=== PATIENT | female | born 1990 | race Caucasian/White ===

== ENCOUNTER → 2018-09-25 09:08 | Outpatient (CLI) | payer OTHER, SELFPAY ==
[2018-09-25 13:08] LABS: Chlamydia Trachomatis by PCR Negative (Negative); Neisserai gonorrhoeae by PCR Negative (Negative); Probe Check PASS; Sample Adequacy Control PASS; Specimen Processing Control PASS
[2018-10-02 13:23] LABS: HPV Reflexed? NOT INDICATED
== END ==
PROVIDERS: Visit Provider Obstetrics & Gynecology
DX: Z12.4 Encounter for screening for malignant neoplasm of cervix (principal); Z11.3 Encounter for screening for infections with a predominantly sexual mode of transmission
CPT/HCPCS: 87491; 87591; 87624; 88175; G0145

== ENCOUNTER 2019-02-26 10:20 | Inpatient (IN) | payer SELFPAY ==
[2019-02-26] VITALS (17 sets, daily range): BP systolic 97–132; BP diastolic 49–78; PULSE 75–104; RESP 14–20; TEMP 36.3–37.1; O2SAT 97–100; BMI 31.8
[2019-02-26] MEDS: Lactated Ringers 1,000 ML 999 ML IV (10:55)
[2019-02-26 11:16] LABS: Absolute Lymphocyte Count 2.36 X10^3/uL (0.83-4.51); Absolute Neutrophil Count 6.3 X10^3/uL (2.0-7.7); Basophil# 0.03 X10^3/uL; Basophil% 0.3 % (0-1); Eosinophil# 0.07 X10^3/uL; Eosinophils% 0.7 % (0-5); Hematocrit 35.2 % (37-47); Lymphocyte # 2.36 X10^3/ul (4.0); Lymphocyte % 24.8 % (19-41); Mean Corp Hgb Conc 34.1 g/dL (32-36); Mean Corpuscular Hgb 31.2 pg (27.0-32.0); Mean Corpuscular Volume 91.4 fL (81-99); Mean Platelet Vol. 10.9 fl (6.2-12.0); Monocyte# 0.68 X10^3/uL; Monocyte% 7.2 % (0-10); NRBC Flagged by Analyzer 0 % (0-5); Neutrophil # 6.25 X10^3/uL (2.7-7.7); Neutrophil % 65.8 % (47-70); Platelet Count 150 K/mm3 (150-450); RBC Distribution Width CV 13.1 % (11.6-14.6); RBC Distribution Width SD 43.2 fl (35.1-43.9); Red Blood Count 3.85 M/mm3 (4.2-5.4); White Blood Count 9.5 K/mm3 (4.4-11.0)
[2019-02-26] MEDS: Sodium Citrate/Citric Acid 30 ML UDC PO (12:00)
[2019-02-26] MEDS: Cefazolin 2 GM in 0.9% Normal Saline 100 ML IV (12:09)
--- NOTE | 2019-02-26 12:20 | OP.PCM_ITS ---
Delivery Classification: Scheduled Final LAURO: 03/05/19 Final LAURO Source: US <20 weeks Gestational age: 39 Weeks and 0 Days Indications for : Repeat Elective Description of Procedure: Surgeon: Tanner Hansen MD, FACOG Associate Agent Insurance Sales: NISHI Crow Anesthesia: Breana Forde CRNA Anesthesia: Spinal with Duramorph Pre-op Diagnosis: Prior Section Post-Op Diagnosis: Prior Section Procedure: Repeat Low Transverse Cervical Caesarean Section Findings: Viable female with Apgars of 9/9 in an occiput anterior presentation with clear amniotic fluid and normal three-vessel placenta. Indication: This is a 28-year-old who presents for her second at 39 weeks gestation. care has otherwise been uneventful. The patient has been counseled regarding the risk and indications of this procedure including the possibility of bleeding infection and injury to surrounding structures such as bowel bladder. All questions were answered. Procedure: Patient was taken to the operating room where after spinal anesthesia was placed, the patient was prepped and draped in usual sterile fashion and a Hennessy catheter was placed. The abdomen was entered through the patient's prior Pfannenstiel incision and peritoneum was entered bluntly. After developing a bladder flap on the lower uterine segment a low transverse incision was made on the uterus and head was easily delivered onto the operative field the nose mouth and oropharynx were bulb suctioned. Subsequently a viable female was born with Apgars of 9/9. The infant was noted to cry move all extremities vigorously on the operative field. The umbilical cord was doubly clamped and ligated and handed to the nursery personnel who were present for the delivery. Placenta was delivered and noted to be 3 vessels and normal. Uterus was exteriorized and remaining placental tissue was removed. The uterus was then closed in 2 layers first with running locked 0 Vicryl suture followed by a second imbricating layer with 0 Vicryl suture. 0 Vicryl suture was then used in a horizontal mattress interrupted fashion to affect final hemostasis of the uterine incision line. Normal fallopian tubes and ovaries were visualized and the uterus was returned to the pelvis. Hemostasis was noted and rectus abdominis muscles were reapproximated in the midline with interrupted Number 0 Vicryl suture in a horizontal mattress fashion. Fascia was closed with running Number 1 PDS Strata fix suture. Subcutaneous tissue was irrigated with copious amounts of saline solution and then closed with running 3-0 Vicryl suture. Skin was closed with 4-0 monocryl suture in a running subcuticular fashion. Steri strips, telfa, and tape were placed across the incision. The patient tolerated the procedure well and was taken to the recovery room in satisfactory condition. Sponge, needle, and instrument counts were all reportedly correct. EBL was less than 500 cc. Ancef 2 gms IV was given prior to the procedure. Spicemen to Pathology: None Complications: None Amniotic Fluid Description: Clear Placenta Disposition: [facility] Specimen(s) sent to pathology: None Fluids Replaced: Crystalloid Cord Entanglement: None Cord Vessel Description: 3 Vessels Esitmated Blood Loss (ml): 500 cc Gender: Female (1 minute): 9 (5 minute): 9 Pre-op Antibiotic Given: Ancef 2 grams IV x1 Pt instructed on risks of surgery: Bleeding, Infection, Injury to surrounding structure(s) including bowel and bladder Complications: None - Admit VTE Documentation VTE Present on Admission: Yes VTE Mechan Device Prophylaxis: SCD's VTE Pharm Prophylaxis ordered?: No Reason prophylaxis not ordered:: Treatment Not Indicated
[2019-02-26] MEDS: Oxytocin 30 units/NS 500 ml 30 UNITS/500 ML IV.SOLN 167 UNITS IV (12:31)
--- NOTE | 2019-02-26 13:12 | DCINST_ITS ---
Discharge Diet: No Restrictions Discharge Activity: May not drive while taking narcotic pain medications., May Shower, May Take a Tub Bath May resume sexual activity in: 4-6 weeks Lifting Restrictions: 20 pounds Additional Activity Instructions:: Nothing in the vagina for 4-6 weeks. You may return to work/school in 6 weeks. Call your doctor if your incision/area has: Continuous Slow Oozing, Sudden Increased Bleeding, Increased Pain/ Swelling, Increased Redness, Foul Smelling Discharge Call your doctor if you observe: Fever of 101 or Higher, Inability to urinate, Inability to have a bowel movement, Using more than one pad per hour Additional Instructions: If you experience any of the following, contact your healthcare provider. * Bleeding that soaks a pad every hour for 2 hours * Unrelieved incision or abdominal pain * Swelling, redness, discharge or bleeding from your incision or episiotomy site * Your incision begins to separate * Problems urinating (including inability to urinate or burning while urinating). * Visual changes * Severe headache * Flu-like symptoms * Pain or redness in one of both of your breasts * Pain, warmth, tenderness or swelling in your legs, especially the calf area * Frequent nausea and vomiting * Symptoms of depression or anxiety If you experience any of the following, call 911 or go to the nearest Emergency Room. * Chest pain * Problems breathing * Seizure activity * Partial or complete paralysis of a body part, slurred speech, weakness or drooping of the face, or a sudden inability to walk or hold your balance Allergies/Adverse Reactions: Allergies No Known Allergies Allergy (Verified 02/26/19 10:45) Medications to take at Discharge Docusate Sodium [Colace] 100 mg PO BID PRN PRN #60 cap 02/26/19 Oxycodone [Oxyir] 5 mg PO Q6H PRN PRN 7 Days #20 tab 02/26/19 Vit No.130/Iron/Folic [ Tablet] 1 ea PO DAILY 02/26/19 The following prescriptions were given: Docusate Sodium [Colace] 100 mg PO BID PRN PRN #60 cap PRN Reason: Constipation Prescription Printed Oxycodone [Oxyir] 5 mg PO Q6H PRN PRN 7 Days #20 tab PRN Reason: Severe Pain () Prescription Printed Follow-Up: Call to make an appointment with your doctor for an incision check in 1-2 weeks. You will also need a 6 week post- follow up appointment. Test results from this visit will be discussed in further detail at your follow- up appointment, if applicable. Please Follow Up With: Tanner Hansen MD - [phone] When: Call to make an appointment for an incision check in 2 weeks.
[2019-02-26] MEDS: Lactated Ringers 1,000 ML 100 ML IV (14:09)
[2019-02-26] MEDS: Ondansetron ODT 4 MG Tablet PO (16:36)
[2019-02-26] MEDS: Cefazolin 1 GM/50 ML BAG IV (21:09)
[2019-02-27] VITALS (11 sets, daily range): BP systolic 98–109; BP diastolic 50–60; PULSE 69–79; RESP 14–18; TEMP 36.3–36.9; O2SAT 97–100
[2019-02-27] MEDS: Lactated Ringers 1,000 ML 100 ML IV (00:03)
[2019-02-27] MEDS: Ketorolac 30 MG/ML Syringe IV ×4 (00:03→18:07)
[2019-02-27] MEDS: Cefazolin 1 GM/50 ML BAG IV (04:29)
[2019-02-27 06:30] LABS: Hematocrit 32.6 % (37-47); Hemoglobin 10.9 g/dL (12.0-15.0); Mean Corp Hgb Conc 33.4 g/dL (32-36); Mean Corpuscular Hgb 31.4 pg (27.0-32.0); Mean Corpuscular Volume 93.9 fL (81-99); Mean Platelet Vol. 10.8 fl (6.2-12.0); Platelet Count 127 K/mm3 (150-450); RBC Distribution Width CV 13.4 % (11.6-14.6); RBC Distribution Width SD 45.8 fl (35.1-43.9); Red Blood Count 3.47 M/mm3 (4.2-5.4); White Blood Count 11.6 K/mm3 (4.4-11.0)
[2019-02-27] MEDS: Acetaminophen 500 MG Tablet 1000 MG PO (07:55)
[2019-02-27] MEDS: Senna/Docusate Sodium 1 Tablet PO (07:55)
[2019-02-27] MEDS: 0.9% Saline Lock 10 ML Syringe IV ×3 (07:57→18:08)
--- NOTE | 2019-02-27 08:06 | PCM.PN.OB ---
Subjective: Patient without complaints. Tolerating diet well. Denies flatus. Hennessy just discontinued. - Physical Exam Vital Signs Temp Pulse Resp BP Pulse Ox 98.4 F 69 18 109/60 97 02/27/19 07:31 02/27/19 07:31 02/27/19 07:31 02/27/19 07:31 02/27/19 07:31 Oxygen Delivery Method Room Air Weight: 197 lb Body Mass Index (BMI) 31.8 Intake and Output for Last 24 Hours 02/25/19 02/26/19 02/27/19 23:59 23:59 23:59 Intake Total 3655 / 3655 Output Total 2049 / 2049 500 / 500 Balance 1605 / 1605 -500 / -500 Laboratory Tests Past 24 Hrs 02/26/19 02/26/19 02/27/19 10:55 10:55 06:25 WBC 9.5 11.6 H RBC 3.85 L 3.47 L Hgb 12.0 10.9 L Hct 35.2 L 32.6 L MCV 91.4 93.9 MCH 31.2 31.4 MCHC 34.1 33.4 RDW Std Deviation 43.2 45.8 H RDW Coeff of Toi 13.1 13.4 Plt Count 150 127 L MPV 10.9 10.8 Immature Gran % (Auto) 1.200 H Neut % (Auto) 65.8 Lymph % (Auto) 24.8 [place] % (Auto) 7.2 Eos % (Auto) 0.7 Baso % (Auto) 0.3 Absolute Neuts (auto) 6.3 Absolute Lymphs (auto) 2.36 Absolute Nucleated RBC 0.00 Nucleated RBC % 0 Blood Type A POSITIVE Antibody Screen NEGATIVE Wound is clean, dry, intact. Good urine output. Hemoglobin okay. Medical Necessity - Tobacco Use Smoking Status: Never smoker Assessment/Plan Doing well postoperative day #1 status post repeat . Continuing present care.
--- NOTE | 2019-02-27 18:27 | NURSING ---
Reviewed and agree with all charting by CHRISTEN Monahan
[2019-02-28] MEDS: Ketorolac 30 MG/ML Syringe IV ×2 (00:11→06:01)
[2019-02-28] MEDS: 0.9% Saline Lock 10 ML Syringe IV ×2 (00:12→06:02)
[2019-02-28 02:50] VITALS: BP 114/61; PULSE 73; RESP 16; TEMP 36.6; O2SAT 97
[2019-02-28 08:26] VITALS: BP 122/63; PULSE 85; RESP 16; TEMP 36.2
--- NOTE | 2019-02-28 09:35 | PCM.PN.OB ---
Subjective: Patient without complaints. Tolerating diet well. Breast-feeding going well. Ready to go home. - Physical Exam Vital Signs Temp Pulse Resp BP Pulse Ox 97.2 F L 85 16 122/63 H 97 02/28/19 08:26 02/28/19 08:26 02/28/19 08:26 02/28/19 08:02/28/19 02:50 Oxygen Delivery Method Room Air Weight: 197 lb Body Mass Index (BMI) 31.8 Intake and Output for Last 24 Hours 02/26/19 02/27/19 02/28/19 23:59 23:59 23:59 Intake Total 3655 / 3655 Output Total 2049 / 2049 1400 / 1400 Balance 1605 / 1605 -1400 / -1400 Medical Necessity - Tobacco Use Smoking Status: Never smoker Assessment/Plan Doing well post operative day #2 status post repeat . Will discharge to home with routine instructions.
--- NOTE | 2019-03-04 16:39 | NURSING ---
mother doing well and baby eating with shield but doing well . Lots of voids and stools. Mother thought Elena was super and the nurses that were helping from the other floors
== END 2019-02-28 10:40 | disposition home or self-care (01) | DRG 833 ==
PROVIDERS: Admitting Provider Obstetrics & Gynecology; Referring Provider Obstetrics & Gynecology; Visit Provider Obstetrics & Gynecology
PROC: (CPT 59514; principal; 2019-02-26 11:45)
DX: O65.5 Obstructed labor due to abnormality of maternal pelvic organs (principal); O34.219 Maternal care for unspecified type scar from previous cesarean delivery; Z3A.39 39 weeks gestation of pregnancy; Z37.0 Single live birth
CPT/HCPCS: 85025; 85027; 86850; 86900; 99218; J7120; A4216; G0378; J2405

== ENCOUNTER → 2020-11-02 09:49 | Outpatient (CLI) | payer OTHER, SELFPAY ==
[2019-02-26 10:44] VITALS: BMI 31.8
[2020-11-04 16:19] LABS: HPV Reflexed? NOT INDICATED
[2020-11-04 20:08] LABS: Chlamydia By Nucleic Acid AMP Negative (Negative)
[2020-11-04 20:30] LABS: Gonococcus By Nucleic Acid AMP Negative (Negative)
== END ==
PROVIDERS: Visit Provider Obstetrics & Gynecology
DX: Z12.4 Encounter for screening for malignant neoplasm of cervix (principal); Z32.01 Encounter for pregnancy test, result positive; Z11.3 Encounter for screening for infections with a predominantly sexual mode of transmission
CPT/HCPCS: 87491; 87591; 88175; G0145

== ENCOUNTER → 2021-03-02 10:38 | Outpatient (CLI) | payer OTHER, SELFPAY ==
[2019-02-26 10:44] VITALS: BMI 31.8
[2021-03-02 12:02] LABS: Hematocrit 35.6 % (37-47); Hemoglobin 11.7 g/dL (12.0-15.0); Mean Corp Hgb Conc 32.9 g/dL (32-36); Mean Corpuscular Hgb 30.2 pg (27.0-32.0); Mean Platelet Vol. 10.6 fl (6.2-12.0); Platelet Count 160 K/mm3 (150-450); RBC Distribution Width CV 12.7 % (11.6-14.6); RBC Distribution Width SD 42.5 fl (35.1-43.9); Red Blood Count 3.87 M/mm3 (4.2-5.4); White Blood Count 10.8 K/mm3 (4.4-11.0)
[2021-03-02 12:04] LABS: Glucose Challenge Gest 1H 50g 114 mg/dL (70-140)
== END ==
PROVIDERS: Visit Provider Obstetrics & Gynecology
DX: Z34.83 Encounter for supervision of other normal pregnancy, third trimester (principal)
CPT/HCPCS: 36415; 82950; 85027

== ENCOUNTER 2021-05-16 05:03 | Inpatient (IN) | payer SELFPAY, OTHER ==
[2019-02-26 10:44] VITALS: BMI 31.8
[2021-05-16] VITALS (16 sets, daily range): BP systolic 90–118; BP diastolic 49–73; PULSE 70–94; RESP 16–18; TEMP 35.9–36.5; O2SAT 95–100; BMI 30.6
[2021-05-16] MEDS: Lactated Ringers 1,000 ML 999 ML IV (05:20)
--- NOTE | 2021-05-16 05:24 | NURSING ---
pt refused COVID testing upon admission; pt educated and verbalized understanding for refusal
[2021-05-16 05:34] LABS: Absolute Lymphocyte Count 2.19 X10^3/uL (0.83-4.51); Absolute Neutrophil Count 6.6 X10^3/uL (2.0-7.7); Basophil# 0.04 X10^3/uL; Basophil% 0.4 % (0-1); Eosinophil# 0.11 X10^3/uL; Eosinophils% 1.1 % (0-5); Hematocrit 37.9 % (37-47); Hemoglobin 12.5 g/dL (12.0-15.0); Lymphocyte # 2.19 X10^3/ul (0.83-4.51); Lymphocyte % 22.7 % (19-41); Mean Corpuscular Hgb 29.8 pg (27.0-32.0); Mean Corpuscular Volume 90.2 fL (81-99); Mean Platelet Vol. 10.7 fl (6.2-12.0); Monocyte# 0.64 X10^3/uL; Monocyte% 6.6 % (0-10); NRBC Flagged by Analyzer 0 % (0-5); Neutrophil # 6.55 X10^3/uL (2.7-7.7); Neutrophil % 68.1 % (47-70); Platelet Count 171 K/mm3 (150-450); RBC Distribution Width CV 13.7 % (11.6-14.6); RBC Distribution Width SD 45.1 fl (35.1-43.9); White Blood Count 9.6 K/mm3 (4.4-11.0)
--- NOTE | 2021-05-16 05:48 | NURSING ---
two small reddened bug bites noted on pts abdomen
[2021-05-16] MEDS: Acetaminophen 500 MG Tablet 1000 MG PO ×4 (06:12→23:45)
[2021-05-16] MEDS: Lactated Ringers 1,000 ML 150 ML IV (06:22)
[2021-05-16] MEDS: Sodium Citrate/Citric Acid 30 ML UDC PO (06:59)
--- NOTE | 2021-05-16 07:25 | HP.PCM_ITS ---
History and Physical Date of Admission: 05/16/21 ACOG ANTEPARTUM RECORD - HISTORY AND PHYSICAL (05/16/2021) Name: YAMIL LOPEZ History of this : This is a 30 year old [id number] presents at 39 wks + 1 days gestation for repeat . OB Physician: Tanner Hansen MD [employer]'s Physician: João Peterson [facility] ...................................................................... : 1990 Age: 30 Address: [address] [place] [address] Phone: H) [phone] Insurance Carrier: Dick or Bro [id number] Emergency Contact: NICOLLE SERRANO/MOTHER [phone] ...................................................................... Final LAURO: 05/22/21 By Ultrasound: 12 weeks 4 days PARITY: (G-Total Pregnancies P-Fullterm,Premature,Induced AB,Spont AB, Ectopics, Multiple,Living) LAURO CONFIRMATION: By LMP: 08/23/20 Initial Exam: 05/30/21 By First Ultrasound Exam: 05/19/21 Final LAURO: 05/22/21 OB PROBLEM LIST: No genetic family issues- declines all genetics testing. Had Covid in 05/24 Plans RCS at [facility]. ALLERGIES: No Known Drug Allergies MEDICATIONS: Vitamin 27 mg iron-800 mcg tablet 1 qd Probiotic 15 billion cell capsule 1 qd Supplement (s) [No Strength] Black Strap Molasses 1 tbsp daily SOCIAL HISTORY: Smoking - Never Alcohol Use - RARELY not while Diet - healthy diet, NO caffeine, some water- more enc. Lifestyle - moderate stress lifestyle and Exercise - active w home and kids, mowing, gardening. 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 118/66 0 182 tr - Nov 13 JMW 4 12 + US 122/72 0 182 tr - ANTEPARTUM NOTE(S): May 10 2021: C-S consents signed, Good FM May 02 2021: see progress note, Good FM Apr 11 2021: Good FM,Feeling Well Mar 14 2021: Good FM,Feeling Well Mar 02 2021: 1 HR GTT Jan 24 2021: gave glucola/instructions Dec 28 2020: Sono Today,FM Noted,Feeling Well Dec 06 2020: Doing Well, AFP declined Nov 08 2020: Sono Today, labs and forms COMPREHENSIVE ANTEPARTUM NOTE(S): May 10 2021: Yamil presents here today for PNV and signed Repeat consent with questions answered. Covid order written and faxed to [facility]. Ensure and surgical wash given. Good FM. AGGIE May 02 2021: Yamil presents for her PNV. She is reporting +FM and only slight intermittent swelling in her extremities. LARC declined and consent signed today. No GBS per Dr Hansen since R/. Pt reports sx of Upper Respiratory Infection x9days including cough, nasal congestion, and now earache/congestion started last night. She is taking vitamin supplements. JT Mar 02 2021: aYmil is here for a PNV at 28 wks. Good FM. No edema present at this time. Denies concerns/ questions. 1 hr GTT drawn, pt A+. MK Mar 02 2021: 28 weeks, 1 hour GTT today. For repeat section. 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 Her , Tanner is a wood tile installer. They're pleased about the pg. They have a 4 yo son and 1 1/2 yo daughter. Yamil has NKA, is a lifetime non smoker, denies street drug use and drinks alcohol rarely and not in pg. Her diet sounds healthy. Nov 02 2020: ok Nov 01 2020: Yamil presents here today for Missed menses appointment. 30 y.o. G 4 P 2 non-smoker with history of regular menses and LMP of 08-23-20 lasting her average of 3-4 days. UPT is positive today in our Office. Presents at 9 weeks 6 days with an approximate LAURO of 05-30-21. Plans repeat at [facility] due to her history of 2 previous C-Sections. Denies spotting/bleeding thus far in . Reports REVIEW OF SYSTEMS: GENERAL - Denies fever, or chills SKIN - Denies rash, new skin lesions, or change in moles EYES - Denies blurred vision, or change in visual acuity EARS - Denies ear pain, or difficulty hearing NOSE - Denies nasal congestion, discharge, or bleeding MOUTH - Denies sore throat, or difficulty swallowing NECK - Denies pain or swelling RESPIRATORY - Denies shortness of breath, cough, wheezing CARDIOVASCULAR - Denies palpitations, chest pain, orthopnea, PND, peripheral edema, syncope or claudication GASTROINTESTINAL - Denies nausea, vomiting, diarrhea, constipation, Denies abdominal pain, melena and or bright red blood GENITOURINARY - Denies dysuria, frequency of urination, urgency, or hesitancy MUSCULOSKELETAL - Denies joint or muscle pain, or back pain NEUROLOGICAL - Denies localized numbness, weakness, or tingling PSYCHIATRIC - Denies depression, anxiety, substance abuse or suicide attempts ENDOCRINE - Denies heat or cold intolerance, weight loss or gain, increasing thirst HEMATO-IMMUNOLOGIC - Denies easy bruising, bleeding, oral ulcerations or recurrent infections GENETICS SCREENING: Age 35+ years: No Thalassemia: No Neural Tube Defect: No Down Syndrome: No JESSICA-SACHS: No Sickle Cell Disease: No Hemophilia: No Musc. Dystrophy: No Cystic Fibrosis: No-declines screening [place] Chorea: No Mental Retardation: No Fragile X: No Other genetic: No Other defects: No SABs/still births: No Drugs since LMP: No INFECTION HISTORY: High risk AIDS: No High risk Hepatitis: No Exposed to TB: No Exposed to Herpes: No Rash/viral illness since LMP: No History of STD: No MENSTRUAL HISTORY: *Menses Amount/Duration: 3-4 DAYSMenses Regularity: RegularFrequency: monthlyMenarche (Age Onset): 14* PAST SUMMARY: PARITY: 1. Total Pregnancies............ 4 2. Full Term Pregnancies........ 2 3. Premature.................... 0 4. Abortions - Induced.......... 0 5. Abortions - Spontaneous...... 1 6. Ectopics..................... 0 7. Multiple Births.............. 0 8. Living Children.............. 2 PAST #1: Date of :.................. 08/05/14 Gestation Weeks:................ 6 Length of labor(hours):......... 0 Sex:............................ Weight-lbs:............... 0 Weight-oz:................ 0 Type of Delivery:............... Sab Type of Anesthesia:............. None Place of Delivery:.............. [place] Treatment of Labor?:.... No Comment: PAST #2: Date of :.................. 03/27/16 Gestation Weeks:................ 41 Length of labor(hours):......... 14 Sex:............................ M Weight-lbs:............... 8 Weight-oz:................ 8 Type of Delivery:............... C-Sect Type of Anesthesia:............. Spinal Place of Delivery:.............. [facility] Treatment of Labor?:.... No Comment: NO PAST #3: Date of :.................. 02/26/19 Gestation Weeks:................ 39 Length of labor(hours):......... 0 Sex:............................ F Weight-lbs:............... 7 Weight-oz:................ 6 Type of Delivery:............... C-Sect Type of Anesthesia:............. Spinal Place of Delivery:.............. [place] Treatment of Labor?:.... No Comment: NO PHYSICAL EXAMINATION General Appearence: 30 yo female in no acute distress Vital Signs: AF, VSS Heart: RRR without rubs or gallops Lungs: CTA x 2 Breasts: deferred Abdomen: gravid Pelvis: Cervix: Presentation: cephalic Station: Fetus: Size: AGA Movement: present Heart: present LAB TEST(S) ORDERED SINCE:08/25/20 05/16/2021 TYPE AND SCREEN 05/16/2021 CBC W/DIFF, AUTOMATED 03/02/2021 GLUCOSE CHALLENGE GEST 1H 50G 03/02/2021 CBC-COMPLETE BLOOD CNT NO DIFF 11/10/2020 POMERENE 3 [CCL] 11/10/2020 HEPATITIS C AB IA W/CONFIRM [CCL] 11/08/2020 URINALYSIS 11/08/2020 TSH 11/08/2020 CBC + DIFF 11/08/2020 BB TYPE 11/04/2020 PAP IG W/REFLEX HR HPV APTIMA 11/04/2020 CHLAMYDIA/GC ADY APTIMA == ==== Order Observation Description Value Ref_Range A* Site == ==== [facility]~[address] [place], [address]~ TYPE AND SCRE AB SCREEN GEL NEGATIVE ML CBC W/DIFF, AUT NOTE SALAZAR CBC W/DIFF, AUT WBC 9.6 K/mm3 4.4-11.0 ML CBC W/DIFF, AUT RBC 4.20 M/mm3 4.2-5.4 ML CBC W/DIFF, AUT HGB 12.5 g/dL 12.0-15.0 ML CBC W/DIFF, AUT HCT 37.9 37-47 ML CBC W/DIFF, AUT MCV 90.2 fL 81-99 ML CBC W/DIFF, AUT MCH 29.8 pg 27.0-32.0 ML CBC W/DIFF, AUT MCHC 33.0 g/dL 32-36 ML CBC W/DIFF, AUT RDW CV 13.7 11.6-14.6 ML CBC W/DIFF, AUT RDW SD 45.1 fl 35.1-43.9 H ML CBC W/DIFF, AUT PLT 171 K/mm3 150-450 ML CBC W/DIFF, AUT MPV 10.7 fl 6.2-12.0 ML CBC W/DIFF, AUT NEUT% 68.1 47-70 ML CBC W/DIFF, AUT LY% 22.7 19-41 ML CBC W/DIFF, AUT MONO% 6.6 0-10 ML CBC W/DIFF, AUT EO% 1.1 0-5 ML CBC W/DIFF, AUT BASO% 0.4 0-1 ML CBC W/DIFF, AUT IG% 1.100 0.0-0.9 H ML IG% - Immature Granulocytes (promyelocytes, myelocytes and metamyelocytes) > 1% indicates that a LEFT SHIFT is Present. CBC W/DIFF, AUT ABSOLUTE NEUT 6.6 X10 3/uL 2.0-7.7 ML CBC W/DIFF, AUT ABSOLUTE LYMPH 2.19 X10 3/uL 0.83-4.51 ML CBC W/DIFF, AUT NUCLEATED RBC 0 0-5 ML GLUCOSE CHALLEN NOTE [facility] GLUCOSE CHALLEN GLU GEST 50G 1H 114 mg/dL 70-140 ML CBC-COMPLETE BL NOTE SALAZAR CBC-COMPLETE BL WBC 10.8 K/mm3 4.4-11.0 ML CBC-COMPLETE BL RBC 3.87 M/mm3 4.2-5.4 L ML CBC-COMPLETE BL HGB 11.7 g/dL 12.0-15.0 L ML CBC-COMPLETE BL HCT 35.6 37-47 L ML CBC-COMPLETE BL MCV 92.0 fL 81-99 ML CBC-COMPLETE BL MCH 30.2 pg 27.0-32.0 ML CBC-COMPLETE BL MCHC 32.9 g/dL 32-36 ML CBC-COMPLETE BL RDW CV 12.7 11.6-14.6 ML CBC-COMPLETE BL RDW SD 42.5 fl 35.1-43.9 ML CBC-COMPLETE BL PLT 160 K/mm3 150-450 ML CBC-COMPLETE BL MPV 10.6 fl 6.2-12.0 ML HEPATITIS C AB NOTE [facility] HEPATITIS C AB HEPATITIS C AB IA Negative NEGAT [address] [address] Parish Weber III, M.D. [id number] POMERENE 3 [CCL NOTE [facility] POMERENE 3 [CCL RPR Non Reactive NR [facility] POMERENE 3 [CCL HEPATITIS B SURF. AG Negative NEGAT [facility] [[facility]L RUBELLA IGG AB, QUAL Positive NEGAT A [facility] Sample is considered positive for IgG antibodies to rubella virus. A positive result indicates previous exposure to Rubella virus or vaccination. [facility] [[facility] RUBELLA IGG AB 9.48 Indexlue [facility] Index values are interpreted as follows: Negative specimens <0.90 Equivocol specimens 0.90 to 0.99 Positive specimens >0.99 The magnitude of the measured result is not indicative of the amount of antibody present. [facility] [address] [place] [address] Parish Weber III, M.D. [id number] BB TYPE NOTE [facility] BB TYPE BB TYPE [facility] TYPE, Rh, AND SCREEN BB TYPE ABO A [facility] BB TYPE RH POS [facility] BB TYPE ANTIBODY SCR negative [facility] TSH NOTE [facility] TSH TSH 3.49 uIU/ml 0.35 - 3.74 [facility] URINALYSIS NOTE [facility] URINALYSIS URINALYSIS [facility] URINALYSIS URINALYSIS SPECIMEN TYPE URINE [facility] URINALYSIS COLOR ant NORMAL: YELLOW [facility] URINALYSIS CLARITY sl.cloudy NORMAL: CLEAR [facility] URINALYSIS PH 6 NORMAL: 5.0-8.0 [facility] URINALYSIS PROTEIN NEG NORMAL: NEGATIV [facility] URINALYSIS GLUCOSE NORM NORMAL: NORMAL [facility] URINALYSIS KETONE NEG NORMAL: NEGATIV [facility] URIN[facility]YS[facility] BILIRUBIN NEG NORMAL: NEGATIV [facility] URINALYSIS BLOOD NEG NORMAL: NEGATIV [facility] URINALYSIS UROBILINOG NORM NORMAL: NORMAL [facility] URINALYSIS SP GRAVITY 1.020 NORMAL: 1.010-1 [facility] URINALYSIS NITRITE NEG NORMAL: NEGATIV [facility] URINALYSIS LEUKOCYTES 25 NORMAL: NEGATIV A [facility] URINALYSIS MICROSCOPIC SEE BELOW [facility] MICROSCOPIC URINALYSIS WBC 1-5 0-5/hpf [facility] URINALYSIS RBC NONE 0-3/hpf [facility] URINALYSIS CASTS NONE [facility] URINALYSIS CRYSTALS NONE [facility] URINALYSIS AMORPHOUS NONE [facility] URINALYSIS BACTERIA 1+ [facility] URIN[facility] EPI CELLS MODERATE [facility]IS MUCOUS NONE [facility] YEAST NONE [facility] CBC + DIFF NOTE [facility] CBC + DIFF CBC + DIFF [facility] CBC-COMPLETE BLOOD COUNT CBC + DIFF WBC 9.3 x 10EE3/UL 4.5 - 10.8 [facility] CBC + DIFF RBC 4.15 x 10EE6/UL 4.10 - 5.30 [facility] CBC + DIFF HEMOGLOBIN 12.8 g/dl 12.0 - 16.0 [facility] CBC + DIFF HEMATOCRIT 36.1 % 34.0 - 46.0 [facility] CBC + DIFF MCV 87 fl 80 - 99 [facility] CBC + DIFF MCH 31 pg 27 - 33 [facility] CBC + DIFF MCHC 35 X10 3 32 - 36 [facility] CBC + DIFF RDW/CV 13.2 % 12.0 - 15.6 [facility] CBC + DIFF PLATELET 210 x10EE3/UL 150 - 450 [facility] CBC + DIFF MPV 9.2 fl 6.6 - 10.5 [facility] AUTOMATED DIFFERENTIAL CBC + DIFF NEUT % 69.9 % 46.0 - 76.0 [facility] CBC + DIFF LYMPH % 22.5 % 20.0 - 45.0 [facility] CBC + DIFF MONOS % 5.9 % 0.0 - 10.0 [facility] CBC + DIFF EO % 0.9 % 0.0 - 7.0 [facility] CBC + DIFF BASO % 0.8 % 0.0 - 2.0 [facility] CBC + DIFF LYMPH # 2.10 x10EE3/UL 0.80 - 2.80 [facility] CBC + DIFF NEUT # 6.50 x10EE3/UL 1.50 - 7.10 [facility] CBC + DIFF MONO # 0.50 x10EE3/UL 0.20 - 1.00 [facility] CBC + DIFF EO # 0.10 x10EE3/UL 0.00 - 0.50 [facility] CBC + DIFF BASO # 0.10 x10EE3/UL 0.00 - 0.10 [facility] CBC + DIFF MANUAL DIFF N/A [facility] CBC + DIFF MORPHOLOGY N/A [facility] {CD] CHLAMYDIA/GC NA NOTE [facility] CHLAMYDIA/GC NA CHLAMY,NUC ACID Negative Negative [facility] CHLAMYDIA/GC NA GC BY NUC ACID Negative Negative [facility] Performed at: =[address] [id number] Exploration Geologist: Maria T Yanez MD, Phone: [phone] PAP IG W/REFLEX NOTE [facility] PAP IG W/REFLEX DIAG Comment . [facility] NEGATIVE FOR INTRAEPITHELIAL LESION OR MALIGNANCY. PAP IG W/REFLEX ADEQ Comment . [facility] Satisfactory for evaluation. Endocervical and/or squamous metaplastic cells (endocervical component) are present. PAP IG W/REFLEX PERFORM Comment . [facility] Symone Gaines, Senior Resident Care Director (ASCP) This liquid based ThinPrep(R) pap test was screened with the use of an image guided system. PAP IG W/REFLEX COMM . . [facility] PAP IG W/REFLEX PAPSMR Comment . [facility] The Pap smear is a screening test designed to aid in the detection of premalignant and malignant conditions of the uterine cervix. It is not a diagnostic procedure and should not be used as the sole means of detecting cervical cancer. Both false-positive and false-negative reports do occur. PAP IG W/REFLEX HPV RFLX Comment . [facility] The HPV DNA reflex criteria were not met with this specimen result therefore, no HPV testing was performed. Performed at: [address] [place] [id number] Exploration Geologist: Maria T Yanez MD, Phone: [phone] A POSITIVE == ==== Impression /Plan: 39 wks + 1 days intrauterine . Preparations in progress for delivery.
[2021-05-16] MEDS: Cefazolin 2 GM in 0.9% Normal Saline 100 ML IV (07:35)
--- NOTE | 2021-05-16 08:21 | OP.PCM_ITS ---
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 care has otherwise been uneventful. The patient has been counseled regarding the risk and indications of this procedure including the possibility of bleeding infection and injury to surrounding structures such as bowel bladder. All questions were answered. Procedure: Patient was taken to the operating room where after spinal anesthesia was placed, the patient was prepped and draped in usual sterile fashion and a Hennessy catheter was placed. The abdomen was entered through the patient's prior Pfannenstiel incision and peritoneum was entered bluntly. After developing a bladder flap on the lower uterine segment a low transverse incision was made on the uterus and head was easily delivered onto the operative field the nose mouth and oropharynx were bulb suctioned. Subsequently a viable male was born with Apgars of 8/9. The was noted to cry move all extremities vigorously on the operative field. The umbilical cord was doubly clamped and ligated and handed to the nursery personnel who were present for the delivery. Placenta was delivered and noted to be 3 vessels and normal. Uterus was exteriorized and remaining placental tissue was removed. The uterus was then closed in 2 layers first with running locked 0 Vicryl suture followed by a second imbricating layer with 0 Vicryl suture. 0 Vicryl suture was then used in a horizontal mattress interrupted fashion to affect final hemostasis of the uterine incision line. Normal fallopian tubes and ovaries were visualized and the uterus was returned to the pelvis. Hemostasis was noted and rectus abdominis muscles were reapproximated in the midline with interrupted Number 0 Vicryl suture in a horizontal mattress fashion. Fascia was closed with running Number 1 PDS Strata fix suture. Subcutaneous tissue was irrigated with copious amounts of saline solution and then closed with running 3-0 Vicryl suture. Skin was closed with 4-0 monocryl suture in a running subcuticular fashion. Steri strips and a Mepilex dressing were placed across the incision. The patient tolerated the procedure well and was taken to the recovery room in satisfactory condition. Sponge, needle, and instrument counts were all reportedly correct. EBL was less than 500 cc. Ancef 2 gms IV was given prior to the procedure. Presentation: Positive for Vertex Amniotic Fluid Description: Clear Placental Delivery Description: Spontaneous Placenta Disposition: [facility] Cord Vessel Description: 3 Vessels Cord Entanglement: Around neck x 2, tight Infant A Gender: Male (1 minute): 8 (5 minute): 9 Complications Risks of Surgery Discussed w/Patient: Bleeding, Infection and Injury to surrounding structure(s) including bowel and bladder Complications: None
--- NOTE | 2021-05-16 08:26 | PCM.DC ---
Documented by User: Dr. Tanner Hansen MD 05/16/21 08:29 Discharge Instructions Diet Discharge Diet: No restrictions Activity May resume sexual activity in: 4-6 weeks Lifting Restrictions: 20 pounds Dressing / Incision Call your doctor if your incision/area has: Continuous Slow Oozing, Sudden Increased Bleeding, Increased Pain/ Swelling, Increased Redness and Foul Smelling Discharge Call your doctor if you observe: Fever of 101 or Higher, Inability to urinate, Inability to have a bowel movement and Using more than 1 pad per hour Follow Up Care Please Follow Up With: Tanner Hansen MD When: Call [phone] for appointment to be seen in 2 weeks. Test Results: Test results from this visit will be discussed in further detail at your follow-up appointment, if applicable. Discharge Plan Admission Admit Date/Time: 05/16/21 05:03 Primary Reason for Your Visit: Repeat Attending Provider: Tanner Hansen Primary Care Provider: Eric Haji Discharge Orders/Prescriptions Prescriptions: New oxycodone 5 mg capsule 5 mg PO Q6H PRN (Reason: pain) 7 Days Qty: 10 RF: 0 docusate sodium 100 mg tablet 100 mg PO BID PRN (Reason: constipation) Qty: 60 RF: 1 Continued vit no.[id number] 1 EACH tablet 1 ea PO DAILY RF: 0 Referrals / Follow Up: Eric Haji MD [Primary Care Provider] - Disposition Disposition (needs filled in before D/C Order can be placed): Home, Self Care Documented by User: Dr. Nabila Baker MD 05/17/21 05:59 Discharge Plan Admission Admit Date/Time: 05/16/21 05:03 Primary Reason for Your Visit: Repeat Attending Provider: Tanner Hansen Primary Care Provider: Eric Haji Discharge Orders/Prescriptions Prescriptions: New oxycodone 5 mg capsule 5 mg PO Q6H PRN (Reason: pain) 7 Days Qty: 10 RF: 0 docusate sodium 100 mg tablet 100 mg PO BID PRN (Reason: constipation) Qty: 60 RF: 1 Continued vit no.[id number] 1 EACH tablet 1 ea PO DAILY RF: 0 Referrals / Follow Up: Eric Haji MD [Primary Care Provider] - Disposition Disposition (needs filled in before D/C Order can be placed): Home, Self Care
[2021-05-16] MEDS: Oxytocin 30 units/NS 500 ml 30 UNITS/500 ML IV.SOLN 167 UNITS IV (08:43)
[2021-05-16 08:47] LABS: HIV - WCH Non-Reactive (Nonreactive)
[2021-05-16] MEDS: Ketorolac 30 MG/ML Syringe IV ×3 (09:18→21:09)
[2021-05-16] MEDS: Lactated Ringers 1,000 ML 100 ML IV (11:36)
[2021-05-16] MEDS: Senna/Docusate Sodium 1 Tablet PO (11:56)
[2021-05-16] MEDS: Cefazolin 1 GM/50 ML BAG IV ×2 (15:39→23:45)
[2021-05-16] MEDS: 0.9% Saline Lock 10 ML Syringe IV (21:10)
[2021-05-17 00:16] VITALS: BP 110/56; PULSE 68; RESP 16; TEMP 36.2
[2021-05-17] MEDS: 0.9% Saline Lock 10 ML Syringe IV (03:10)
[2021-05-17] MEDS: Ketorolac 30 MG/ML Syringe IV (03:10)
[2021-05-17 03:11] VITALS: BP 110/63; PULSE 65; RESP 14; TEMP 36.5
--- NOTE | 2021-05-17 05:53 | PCM.PN.OB ---
Subjective Subjective No complaints. Pain well controlled. Patient out of bed, ambulating and voiding without difficulty. No flatus or bowel movement yet. Tolerates PO. Denies nausea, vomiting, chest pain, sob, headache, vision changes. Denies heavy lochia. She is . Requests d/c home today if discharged. Objective Data Objective Data Vital Signs: Vital Signs Temp Pulse Resp BP Pulse Ox 97.7 F L 65 14 110/63 100 05/17/21 03:11 05/17/21 03:11 05/17/21 03:11 05/17/21 03:11 05/16/21 19:44 Oxygen Delivery Method Room Air Weight: 91.342 kg Body Mass Index (BMI) 30.6 Intake & Output: Intake and Output for Last 24 Hours 05/15/21 05/16/21 05/17/21 23:59 23:59 23:59 Intake Total 4548.34 / 4548.34 50 / 50 Output Total 1875 / 1875 800 / 800 Balance 2673.34 / 2673.34 -750 / -750 Lab / Micro Data Result Diagrams: 05/16/21 05:20 Labs: Laboratory Results - last 24 hr 05/16/21 05:20: Blood Type A POSITIVE, Antibody Screen NEGATIVE 05/16/21 06:30: HIV 1&2 Antibody Non-Reactive Physical Exam Const alert, oriented x3 and no apparent distress Resp normal respiratory effort, normal air movement and clear to auscultation bilaterally Cardio regular rate, regular rhythm, S1 normal heart sound and S2 normal heart sound GI normal to inspection, nondistended, normoactive bowel sounds, soft to palpation, non-tender and non-distended Manual OB Exam: other lochia scant Uterus Palpation: uterus fundus firm Extremity no calf tenderness Assessment & Plan (1) delivery delivered: PLAN: POD#1 s/p RLTCS doing well -A positive, Rubella immune - -Routine postop care -Consider d/c home later today
[2021-05-17] MEDS: Acetaminophen 500 MG Tablet 1000 MG PO ×2 (06:02→11:59)
[2021-05-17 06:20] LABS: Hematocrit 32.4 % (37-47); Hemoglobin 10.6 g/dL (12.0-15.0); Mean Corp Hgb Conc 32.7 g/dL (32-36); Mean Corpuscular Hgb 29.4 pg (27.0-32.0); Mean Platelet Vol. 10.3 fl (6.2-12.0); Platelet Count 142 K/mm3 (150-450); RBC Distribution Width SD 45.2 fl (35.1-43.9); White Blood Count 10.6 K/mm3 (4.4-11.0)
[2021-05-17 08:35] VITALS: BP 104/66; PULSE 67; RESP 16; TEMP 36.3; O2SAT 96
[2021-05-17] MEDS: Ibuprofen 600 MG Tablet PO (08:44)
[2021-05-17] MEDS: Senna/Docusate Sodium 1 Tablet PO (10:42)
== END 2021-05-17 12:20 | disposition home or self-care (01) | DRG 788 ==
PROVIDERS: Admitting Provider Obstetrics & Gynecology; PCP Family Medicine; Visit Provider Obstetrics & Gynecology
PROC: 10D00Z1 Extraction of Products of Conception, Low, Open Approach (ICD-10-PCS; CPT 59514; principal; 2021-05-16 07:15)
DX: O65.5 Obstructed labor due to abnormality of maternal pelvic organs (principal); O34.211 Maternal care for low transverse scar from previous cesarean delivery; O69.1XX0 Labor and delivery complicated by cord around neck, with compression, not applicable or unspecified; Z3A.39 39 weeks gestation of pregnancy; Z37.0 Single live birth
CPT/HCPCS: 85025; 85027; 86703; 86850; 86900; 86901; 99218; J7120; A4216; G0378; J2405